=== PATIENT | male | born 1980 | race African-American/Black ===

== ENCOUNTER 2023-04-13 07:06 | Emergency (ER) | payer SELFPAY ==
[2023-04-13] MEDS ORDERED: valACYclovir 500 MG TAB ONE (07:29)
[2023-04-13] MEDS ORDERED: Ibuprofen 800 MG TAB ONE (07:36)
[2023-04-13] MEDS ORDERED: predniSONE 20 MG TAB ONE (07:36)
== END 2023-04-13 07:48 | disposition home or self-care (01) ==
LOC: NAV ERS 07:06
DX: B02.9 Zoster without complications (principal)
CPT/HCPCS: 99282; J7512

== ENCOUNTER 2023-12-29 10:01 | Emergency (ER) | payer SELFPAY | END 2023-12-29 10:40 | disposition home or self-care (01) | LOC: NAV ERS 10:01 | DX: S39.012A Strain of muscle, fascia and tendon of lower back, initial encounter (principal); X50.1XXA Overexertion from prolonged static or awkward postures, initial encounter | CPT/HCPCS: 99283 ==

== ENCOUNTER 2024-04-17 07:44 | Emergency (ER) | payer SELFPAY ==
[2024-04-17] MEDS ORDERED: Ibuprofen 200 MG TAB ONE (08:17)
== END 2024-04-17 09:15 | disposition home or self-care (01) ==
LOC: NAV ERS 07:44
DX: U07.1 COVID-19 (principal); B34.9 Viral infection, unspecified
CPT/HCPCS: 99283

== ENCOUNTER 2024-05-09 10:54 | Emergency (ER) | payer SELFPAY ==
[2024-05-09 11:47] LABS: Bilirubin Negative (Negative); Blood, Urine Moderate (Negative); Clarity Clear (Clear); Glucose, Urine (Dipstick) Negative (Negative); Ketone, Urine Negative (Negative); Leukocyte Negative (Negative); Nitrite Negative (Negative); Protein, Urine (Dipstick) 100 mg/dL (Neg-Trace); Urobilinogen 0.2 mg/dL (Less than 2)
[2024-05-09 11:48] LABS: Specific Gravity, Urine 1.028 (1.002-1.036)
[2024-05-09 11:50] LABS: Bacteria/HPF Rare-Few HPF (None Seen); CAUTI Indications for Culture Dysuria,urgency,freq; Mucous/LPF 1+ LPF (<2+); Squamous Epithelial 0-3 HPF (0-3)
[2024-05-09 11:51] LABS: Urine Culture Reflex No No
== END 2024-05-09 12:10 | disposition home or self-care (01) ==
LOC: NAV ERS 10:54
DX: K59.00 Constipation, unspecified (principal)
CPT/HCPCS: 81001; 99284